=== PATIENT | female | born 1945 | race Caucasian/White ===

== ENCOUNTER 2018-10-23 07:10 | Inpatient (IN) | payer MEDICARE, OTHER ==
[~2018-10-23 07:10] MED LIST: BUPIVACAINE 0.5% (SDV) 30 ML, EPINEPHrine 0.3 MG, KETOROLAC 30 MG, CLONIDINE 100 MCG, S... IRR; DESFLURANE 15 MIN; DEXAMETHASONE 4 MG/ML 5 ML INJ; ETOMIDATE 20 MG INJ; GLYCOPYRROLATE 0.4 MG INJ; METOCLOPRAMIDE 10 MG INJ; NEOSTIGMINE 3 MG/3 ML SYRINGE
[2018-10-23] MEDS ORDERED: TRANEXAMIC ACID 1GM/100ML(PMX) 100 ML IVPB (08:00)
[2018-10-23] MEDS ORDERED: FENTAnyl 50 MCG/ML VIAL (08:01)
[2018-10-23] MEDS ORDERED: MIDAZOLAM 1 MG/ML 2 ML INJ (08:02)
[2018-10-23] MEDS ORDERED: PROPOFOL 20 ML (08:02)
[2018-10-23] MEDS ORDERED: LIDOCAINE 2% (SDV) 5 ML INJ (08:03)
[2018-10-23] MEDS ORDERED: ROCURONIUM 50 MG INJ (08:03)
[2018-10-23] MEDS ORDERED: ONDANSETRON 4 MG INJ (08:03)
[2018-10-23] MEDS ORDERED: SUCCINYLCHOLINE CHLORIDE 100 MG/5 ML SYG IV (08:03)
[2018-10-23] MEDS: DEXAMETHASONE 1 MG TAB PO (08:12)
[2018-10-23] MEDS: GABAPENTIN 300 MG CAP PO ×2 (08:12→20:53)
[2018-10-23] MEDS: VANCOMYCIN 1 GM (PMX) 250 ML IVPB (08:27)
[2018-10-23] MEDS: LACTATED RINGER'S 1,000 ML IV* (08:28)
[2018-10-23] MEDS ORDERED: SUGAMMADEX SODIUM 200 MG/2 ML VIAL IV (08:55)
[2018-10-23] MEDS ORDERED: ONDANSETRON 4 MG INJ IV ×2 (09:00→11:00)
[2018-10-23] MEDS ORDERED: hydrALAzine 20 MG INJ IV (09:00)
[2018-10-23] MEDS ORDERED: LABETALOL HCL 20MG INJ IV (09:00)
[2018-10-23] MEDS ORDERED: HYDROmorphONE 1 MG/5 ML IV SYRINGE IV (09:00)
[2018-10-23] MEDS ORDERED: MIDAZOLAM 1 MG/ML 2 ML INJ IV (09:00)
[2018-10-23] MEDS ORDERED: LEVALBUTEROL (NEB) 1.25 MG/0.5 ML AMP HHN (09:00)
[2018-10-23] MEDS ORDERED: IPRATROPIUM (NEB) 0.5 MG/2.5 ML AMP HHN (09:00)
[2018-10-23] MEDS ORDERED: MEPERIDINE 25 MG INJ IV (09:00)
[2018-10-23] MEDS ORDERED: DIPHENHYDRAMINE 50 MG INJ IV ×2 (09:00→11:00)
[2018-10-23] MEDS ORDERED: FENTAnyl 50 MCG/ML VIAL IV ×2 (09:00)
[2018-10-23] MEDS ORDERED: ROPIVACAINE 0.5 % 30 ML VIAL (09:04)
[2018-10-23] MEDS: POLYMYXIN/BACITRACIN 1L IRRIG IRR (09:22)
[2018-10-23] MEDS ORDERED: HYDROmorphONE 1 MG/ML SYG IV (11:00)
[2018-10-23] MEDS ORDERED: MAGNESIUM HYDROXIDE 30ML CUP PO (11:00)
[2018-10-23] MEDS ORDERED: LOPERAMIDE 2 MG CAP PO (11:00)
[2018-10-23] MEDS ORDERED: ZOLPIDEM 5 MG TAB PO (11:00)
[2018-10-23] MEDS ORDERED: oxyCODONE 5 MG TAB PO (11:00)
[2018-10-23] MEDS ORDERED: VANCOMYCIN 500 MG (PMX) 100 ML IVPB (11:00)
[2018-10-23] MEDS ORDERED: NACL 0.9% 3 ML SYG IV (11:00)
[2018-10-23] MEDS: HYDROmorphONE 1 MG/5 ML IV SYRINGE IV ×3 (12:18→12:56)
[2018-10-23] MEDS: TRANEXAMIC ACID 1GM/100ML(PMX) 100 ML IVPB (12:21)
[2018-10-23] MEDS: ACETAMINOPHEN 500 MG TAB PO ×2 (12:22→17:57)
[2018-10-23] MEDS: DEXAMETHASONE 2 MG TAB PO ×2 (12:24→17:56)
[2018-10-23] MEDS: PREGABALIN 100 MG CAP PO ×2 (14:01→20:53)
[2018-10-23] MEDS: CARISOPRODOL 350 MG TAB PO ×2 (14:01→20:52)
[2018-10-23] MEDS: KETOROLAC 15 MG INJ IV ×2 (14:02→20:47)
[2018-10-23] MEDS: BUDESONIDE (NEB) 0.5MG/2ML AMP INH (20:25)
[2018-10-23] MEDS: VANCOMYCIN 500 MG (PMX) 100 ML IVPB (20:51)
[2018-10-23] MEDS: GUAIFENESIN LA 600 MG TABSR PO (20:53)
[2018-10-23] MEDS: ATORVASTATIN 20 MG TAB PO (20:53)
[2018-10-23] MEDS: SENNA/DOCUSATE NA (8.6MG/50MG) TAB PO (20:53)
[2018-10-23] MEDS: APIXABAN 5 MG TABLET PO (20:55)
[2018-10-23] MEDS ORDERED: NON-FORMULARY/PATIENT OWN MED (Simvastatin* (Zocor*) 40 MG) PO (21:00)
[2018-10-23] MEDS: FUROSEMIDE 40 MG TAB PO (21:00)
[2018-10-23] MEDS: ENOXAPARIN 60 MG/0.6 ML SYG SC (21:00)
[2018-10-24] MEDS: DEXAMETHASONE 2 MG TAB PO ×2 (02:47)
[2018-10-24] MEDS: KETOROLAC 15 MG INJ IV ×2 (02:47→12:23)
[2018-10-24] MEDS: ACETAMINOPHEN 500 MG TAB PO ×3 (02:48→12:17)
[2018-10-24] MEDS: LACTATED RINGER'S 1,000 ML IV* (02:53)
[2018-10-24] MEDS: oxyCODONE 5 MG TAB PO ×2 (04:21→09:23)
[2018-10-24] MEDS: BUDESONIDE (NEB) 0.5MG/2ML AMP INH (09:00)
[2018-10-24] MEDS: FUROSEMIDE 40 MG TAB PO (09:00)
[2018-10-24] MEDS: GUAIFENESIN LA 600 MG TABSR PO (09:19)
[2018-10-24] MEDS: predniSONE 50 MG TAB PO (09:20)
[2018-10-24] MEDS: CARISOPRODOL 350 MG TAB PO ×2 (09:20→12:17)
[2018-10-24] MEDS: SENNA/DOCUSATE NA (8.6MG/50MG) TAB PO (09:21)
[2018-10-24] MEDS: APIXABAN 5 MG TABLET PO (09:21)
[2018-10-24] MEDS: PREGABALIN 100 MG CAP PO ×2 (09:22→12:17)
[2018-10-24] MEDS: LOSARTAN 25 MG TAB PO (09:24)
[2018-10-24] MEDS: ENOXAPARIN 60 MG/0.6 ML SYG SC (09:34)
[2018-10-24] MEDS: VANCOMYCIN 500 MG (PMX) 100 ML IVPB (10:10)
== END 2018-10-24 12:58 | disposition home or self-care (01) | DRG 483 ==
LOC: REC 07:10 → MS1 12:54
PROC: 0RRK00Z Replacement of Left Shoulder Joint with Reverse Ball and Socket Synthetic Substitute, Open Approach (ICD-10-PCS; principal; 2018-10-23 09:24)
DX: M19.012 Primary osteoarthritis, left shoulder (principal); M75.102 Unspecified rotator cuff tear or rupture of left shoulder, not specified as traumatic; I10 Essential (primary) hypertension; I25.2 Old myocardial infarction; F32.9 Major depressive disorder, single episode, unspecified; F41.9 Anxiety disorder, unspecified; G62.9 Polyneuropathy, unspecified; Z95.5 Presence of coronary angioplasty implant and graft
CPT/HCPCS: 73030; 86999; 88304; 88311; 94664; 97110; 97161; 97530